=== PATIENT | male | born 1935 | race African-American/Black ===

== ENCOUNTER → 2019-11-20 | Outpatient (CLI) | payer MEDICARE ==
[~2019-11-20] VITALS: Ht 160 cm; Wt 75.9 kg
[~2019-11-20] MED LIST: ACETAMINOPHEN-1 EAC1 PO; AMARYL2 MG PO; ASPIRIN325; CARVEDILOL25 MG; CARVEDILOL25 MG PO; CIALIS20 MG; COUMADIN 5 MG TA5 M1 PO; COZAAR 50 MG TA50 MG PO; DORYX MPC120 MG PO; DYAZIDE; FARXIGA5 MG PO; FLOMAX0.4 MG PO; FOSAMAX 70 MG T70 MG PO; GLUCOPHAGE500 MG PO; GLUMETZA500; HYDRALAZINE 5050 MG; HYDROCODON-ACE1 EAC7 PO; LASIX 40 MG TAB40 M2 PO; LISINOPRIL20 MG PO; LOTRIMIN30 GM TP; MUCINEX TA600 MG/TA2 PO; NORCO 5-325 TA1 EACH PO; POTASSIUM CHLO10 ME1 PO; POTASSIUM20 PO; PRAVACHOL40 MG; PRAVACHOL80 MG PO; PROTONIX40 M1 PO; SIMVASTATIN80 MG PO; SPIRONOLACTONE25 MG; SYMBICORT160 MCG/4. INH; TYLENOL325 MG PO
[2019-11-20 10:03] VITALS: BP 128/61
[2019-11-20 10:17] LABS: ABSOLUTE EOSINOPHILS 0.1 thou/uL (0.0-0.7); ABSOLUTE LYMPHOCYTES 1.3 thou/uL (0.8-5.3); ABSOLUTE MONOCYTES 0.4 thou/uL (0.0-1.2); ABSOLUTE NEUTROPHILS 2.3 thou/uL (1.6-8.1); BASOPHILS 0.8 %; EOSINOPHILS 2.8 %; HEMOGLOBIN 14.5 gm/dL (14.0-18.0); LYMPHOCYTES 31.5 %; MCH 32.3 pg (26.0-34.0); MCHC 34.5 g/dL (28.0-37.0); MCV 93.5 fL (80.0-100.0); MPV 8.6 fl. (7.2-11.1); NUCLEATED RBCS 0 /100WBC; PLATELET COUNT* 134 thou/uL (150-400); POLYS 54.9 %; RBC 4.49 mil/uL (4.50-6.00); RDW-CV 13.6 % (10.5-14.5); WBC 4.3 thou/uL (4.0-11.0)
[2019-11-20 10:35] LABS: ALBUMIN 3.8 g/dL (3.4-5.0); CALCIUM 8.5 mg/dL (8.5-10.1); CREATININE 2.1 mg/dL (0.6-1.3); POTASSIUM 4.1 mmol/L (3.5-5.1); TOTAL BILIRUBIN 0.7 mg/dL (<0.1-1.0); TOTAL PROTEIN 7.7 g/dL (6.4-8.2)
[2019-11-20 10:41] LABS: INR 1.9
[2019-11-20 12:01] VITALS: BP 118/72
[2019-11-20 12:20] VITALS: BP 132/44
[2019-11-20 12:35] VITALS: BP 132/47
[2019-11-20 12:52] VITALS: BP 129/53
--- NOTE | 2019-11-20 12:56 | CARD ---
[address] [address] CARDIAC CATH REPORT Name: TAY SMITH Room: [facility] Tomas#: [id number] Admission: 11/20/19 Attend Phys: Maxwell Barroso MD Discharge: Date of : 39 Report #: [id number] THIS REPORT FOR: //name// cc: Tee Morris DO Tee Morris DO ~ APPROVED REPORT Study performed: 11/20/2019 10:35:13 Patient Status: Out-Patient Room #: Event Personnel: Maxwell Barroso Teaching Specialists, Billie Reilly RN, Marek La RTR Scrub, Taina Plasencia RTR Monitor Exam: Generator Change for a Dual Chamber ICD Implantation The patient is a 84 year-old male with a history of . Intraoperative Conscious Sedation Sedation start time: 11:15 Case end Time: 11:40 Fentanyl 25 mcg Versed 1 mg Implanted Devices: [employer] Ilivia 7 DRT, model #322014, serial #[id number] dual-chamber pacing defibrillator generator. Explanted Devices: [employer] Teliugen 100 E 110, serial #[id number] dual-chamber pacing defibrillator generator Procedure After informed consent was obtained the area of the left chest was prepped and draped in sterile fashion. Local anesthesia was achieved with 1% lidocaine. Next after an initial incision was made in the implanted ICD generator was explanted using electrocautery and blunt dissection. The pocket was flushed with antibiotic solution. The new pacing ICD generator was attached to the atrial ventricular and defibrillator leads. The generator and redundant lead were then replaced within the device pocket. The deep tissues were closed with interrupted stitches of 2-0 Vicryl. The skin incision was then closed with a single subcuticular stitch of 4-0 Vicryl. Several Steri-Strips were placed across the incision and a sterile dressing applied. Patient tolerated procedure well without complication. Findings Specimens Removed: No Estimated Blood Loss: 5[place] [address] CARDIAC CATH REPORT Name: TAY SMITH Room: [facility] Tomas#: [id number] Admission: 11/20/19 Attend Phys: Maxwell Barroso MD Discharge: Date of : 39 Report #: [id number] The sensed R-wave was 14.8 mV. The ventricular lead pacing threshold was 0.5 V at 0.40 ms. The ventricular lead pacing impedance was 494 ohms. The sensed P-wave was 2.9 mV. The atrial lead pacing threshold was 0.9 V at 0.40 ms. The atrial lead pacing impedance was 697 ohms. Conclusion 1. Dual-chamber ICD generator at elective replacement. 2. Successful replacement of the dual-chamber ICD generator. Recommendations 1. Follow-up site check in one week. 2. Follow-up with device interrogation in one to 2 months. <ELECTRONICALLY SIGNED> By: Maxwell Barroso MD, FACC 11/20/19 1254 [id number] [id number] Barroso MD, FACC /INF
[2019-11-20 13:03] VITALS: BP 147/52
== END | disposition home or self-care (01) ==
LOC: M.CL 09:40
PROVIDERS: Internal Medicine Cardiovascular Disease
DX: Z45.02 Encounter for adjustment and management of automatic implantable cardiac defibrillator (principal); I25.5 Ischemic cardiomyopathy; I13.0 Hypertensive heart and chronic kidney disease with heart failure and stage 1 through stage 4 chronic kidney disease, or unspecified chronic kidney disease; E11.22 Type 2 diabetes mellitus with diabetic chronic kidney disease; N18.9 Chronic kidney disease, unspecified; I48.91 Unspecified atrial fibrillation; I50.9 Heart failure, unspecified; I25.10 Atherosclerotic heart disease of native coronary artery without angina pectoris; I25.2 Old myocardial infarction; E78.5 Hyperlipidemia, unspecified; Z98.890 Other specified postprocedural states; Z79.899 Other long term (current) drug therapy; Z79.01 Long term (current) use of anticoagulants; Z88.8 Allergy status to other drugs, medicaments and biological substances